=== PATIENT | male | born 1975 | race Two or more races ===

== ENCOUNTER → 2020-04-12 | Outpatient (CLI) | payer OTHER ==
[~2020-04-12] MED LIST: IOHEXOL 300 MG/ML 100ML VIAL. IV ONE
--- NOTE | 2020-04-12 13:48 | RAD ---
EXAM: CT Abdomen-pancreatic protocol without and with IV contrast CLINICAL HISTORY: CHRONIC PANCRETITIS COMPARISON: none TECHNIQUE: Helical CT of the abdomen was performed before and after the administration of intravenous contrast using the pancreatic protocol. Axial, coronal and sagittal reformatted images were generate d. PQRS compliance statement - One or more of the following individualized dose reduction techniques wer e utilized for this study: 1. Automated exposure control 2. Adjustment of the mA and/or kV according to patient size 3. Use of iterative reconstruction technique FINDINGS: Lower chest: 3 mm left lower lobe lung nodule (image 11) is seen. Abdomen: The pancreas is normal. No discrete pancreatic mass is identified. No pancreatic atrophy. There is no ductal dilatation. There is no narrowing or occlusion of the portal vein, SMV or splenic vein. SMA and celiac trunk are grossly normal in caliber as well. No retroperitoneal infiltration. Hepatic hypoattenuation likely fatty liver. Hyperenhancing focus within the left hepatic lobe adjacen t to the falciform ligament possibly in the arterial phase measures 3 mm, possibly flash filling teddy ngioma. Spleen is unremarkable. Right adrenal nodule measuring 1.1 cm measures 12-15 Hounsfield units on the noncontrast image, 20 Hounsfield units on the arterial phase imaging and 19 Hounsfield units on the p ortal venous phase image. This is favored to represent adrenal adenoma. Symmetric nephrograms. No focal renal lesion. No renal tract calculus. No hydronephrosis. Cortical th inning lower pole left kidney. Moderate colonic stool content is seen within the visualized portions of the colon. No small bowel di latation. Retroaortic left renal vein. Bones: No aggressive osseous lesion is seen. IMPRESSION: 1. Pancreas is normal. No pancreatic mass, atrophy or ductal dilatation. 2. Cortical thinning lower pole left kidney likely cortical scarring. 3. Hepatic hypoattenuation likely fatty liver. 4. 3 mm left lower lobe lung nodule. Per Fleischner Society guidelines for incidentally found solid nodules measuring less than 6 mm, no follow-up is necessary if patient is considered at low risk for lung cancer. If patient is considered to be at high risk, such as with history of smoking, then CT fo llow-up in about 12 months can be considered. Electronically signed by: Phil Evans MD (04/12/2020 1:46 PM) [facility]
== END ==
LOC: CT 10:19
PROVIDERS: ATTEND Family Medicine
DX: K86.1 Other chronic pancreatitis (principal); R91.1 Solitary pulmonary nodule; K76.0 Fatty (change of) liver, not elsewhere classified
CPT/HCPCS: 74170; Q9967